=== PATIENT | female | born 2000 | race Caucasian/White ===

== ENCOUNTER 2020-06-23 14:50 | Inpatient (IN) ==
[2020-06-23 15:31] LABS: Bacteria,Urine Few per hpf (None-Few); Bilirubin,Urine Negative (Negative); Blood,Urine Negative (Negative); Calcium Oxalate Crystals,Urine Present; Clarity,Urine Turbid (Clear); Color,Urine Yellow (Yellow); Glucose,Urine (UA) Normal (Normal); Ketones,Urine Negative (Negative); Leukocyte Esterase,Urine Negative (Negative); Mucus,Urine Moderate per lpf (None-Few); Nitrite,Urine Negative (Negative); Protein,Urine 30 mg/dL (Neg-Trace); RBC,Urine 0-3 per hpf (0-3); Specific Gravity,Urine 1.029 (1.010-1.025); Squamous Epithelial Cell,Urine Few per hpf (None-Few); Urobilinogen,Urine >=8.0 mg/dL (Normal); WBC,Urine 0-3 per hpf (0-3)
[2020-06-23 15:34] LABS: Basophils % 0.6 %; Eosinophils # 0.1 K/mcL (0.0-0.6); Eosinophils % 1.9 %; Hematocrit 39.5 % (35.3-44.9); Hemoglobin 13.1 g/dL (11.5-15.4); Immature Granulocytes % 0.1 % (0-4); Lymphocytes # 2.6 K/mcL (0.6-4.6); Lymphocytes % 39.3 %; Mean Corpuscular HGB Conc 33.2 g/dL (31.6-35.5); Mean Corpuscular Hemoglobin 30.5 pg (28.0-33.3); Mean Corpuscular Volume 91.9 fL (83.0-100.0); Mean Platelet Volume 9.4 fL (9.4-12.4); Monocytes # 0.6 K/mcL (0.0-1.3); Monocytes % 8.8 %; Neutrophils # 3.3 K/mcL (1.6-8.9); Platelet Count 240 K/mcL (140-400); Red Cell Distribution Width 13.3 % (11.5-14.5); Segmented Neutrophils % 49.3 %; White Blood Count 6.7 K/mcL (4.3-11.1)
[2020-06-23 16:14] LABS: Acetaminophen < 10 mcg/mL (10-20); Blood Urea Nitrogen 7 mg/dL (6-20); Calcium 9.5 mg/dL (8.6-10.3); Carbon Dioxide 23 mEq/L (23-29); Chloride 109 mEq/L (98-107); Ethanol < 10 mg/dL (Less than 10); Glucose 91 mg/dL (70-105); Osmolality,Calculated 292 (280-300); Potassium 3.7 mEq/L (3.5-5.1); Salicylate < 2.5 mg/dL (15.0-30.0); Sodium 142 mEq/L (136-145)
[2020-06-23 16:18] LABS: Amphetamine Screen,Urine Positive ng/mL (Cutoff=1000); Barbiturate Screen,Urine Negative ng/mL (Cutoff=200); Benzodiazepines Screen,Urine Negative ng/mL (Cutoff=200); Cannabinoid Screen,Urine Negative ng/mL (Cutoff = 50); Cocaine Screen,Urine Negative ng/mL (Cutoff= 300); Opiate Screen,Urine Negative ng/mL (Cutoff=300); Phencyclidine Screen,Urine Negative ng/mL (Cutoff=25)
[2020-06-23 16:39] LABS: BUN/Creatinine Ratio 10 (6-26); eGFR For African Americans > 60 (> 60); eGFR For Non-African Americans > 60 (> 60)
[2020-06-23] MEDS ORDERED: *HR* LORazepam 1 MG TABLET PO PRN (18:47)
[2020-06-23] MEDS ORDERED: MOM Conc 10 ML UD.LIQ PO PRN (18:47)
[2020-06-23] MEDS ORDERED: haloperidoL 5 MG TABLET PO PRN (18:47)
[2020-06-23] MEDS ORDERED: *HR* LORazepam 2 MG/ML VIAL IM PRN (18:47)
[2020-06-23] MEDS ORDERED: traZODone 50 MG TABLET PO PRN (18:47)
[2020-06-23] MEDS ORDERED: Mag Hydrox/Al Hydrox/Simeth 30 ML UDC PO PRN (18:47)
[2020-06-23] MEDS ORDERED: Haloperidol Lactate 5 MG/ML VIAL IM PRN (18:47)
[2020-06-23] MEDS ORDERED: cloNIDine HCL 0.1 MG TABLET PO PRN (18:49)
[2020-06-23] MEDS: Ibuprofen 400 MG TABLET PO PRN (20:43)
[2020-06-23] MEDS: hydrOXYzine pamoate 25 MG CAPSULE PO PRN (20:43)
[2020-06-23] MEDS: Nicotine 14 MG PATCH.TD24 TD SCH (21:46)
[2020-06-24] MEDS: Ibuprofen 400 MG TABLET PO PRN (19:00)
[2020-06-24] MEDS: Nicotine 14 MG PATCH.TD24 TD SCH (19:05)
[2020-06-24] MEDS: QUEtiapine Fumarate 25 MG TABLET PO SCH (20:42)
[2020-06-24] MEDS: hydrOXYzine pamoate 25 MG CAPSULE PO PRN (20:42)
[2020-06-25] MEDS: Nicotine 21 MG PATCH.TD24 TD SCH (09:24)
[2020-06-25] MEDS: hydrOXYzine pamoate 25 MG CAPSULE PO PRN (20:18)
[2020-06-25] MEDS: QUEtiapine Fumarate 25 MG TABLET PO SCH (20:18)
[2020-06-26] MEDS: Nicotine 21 MG PATCH.TD24 TD SCH (09:10)
[2020-06-26 10:17] VITALS: BP 116/80
== END 2020-06-26 16:10 | disposition home or self-care (01) | DRG 751 ==
LOC: EMEROOARM 14:50 → 1ANU 18:46
PROVIDERS: ADMIT Psychiatry & Neurology Psychiatry; ATTEND Psychiatry & Neurology Psychiatry

== ENCOUNTER 2021-09-02 22:30 | Inpatient (IN) ==
[2021-09-02] MEDS ORDERED: Naloxone 0.4 MG/ML INJ ONE (22:39)
[2021-09-02] MEDS ORDERED: Naloxone 0.4 MG/ML INJ IVP ONE (22:43)
[2021-09-02] MEDS ORDERED: 0.9 % Sodium Chloride 1,000 ML IVC ONE (22:43)
[2021-09-02 23:07] LABS: ABG Base Excess -5 mEq/L (-2 to 3); ABG HCO3 21 mEq/L (21-27); ABG Oxygen Saturation 93 % (95-98); ABG PCO2 40 mmHg (35-45); ABG PH 7.32 pH Units (7.32-7.45); ABG PO2 71 mmHg (85-104); ABG TCO2 22 mEq/L (20-26); Blood Gas Modality CPAP/PS
[2021-09-02 23:15] LABS: Basophils % 0.3 %; Lymphocytes % 6.2 %; Mean Platelet Volume 9.8 fL (9.4-12.4); Monocytes % 1.5 %
[2021-09-02 23:16] LABS: Basophils # 0.1 K/mcL (0.0-0.2); Eosinophils % 0.1 %; Hematocrit 39.4 % (35.3-44.9); Hemoglobin 13.3 g/dL (11.5-15.4); Immature Granulocytes % 1.9 % (0-4); Lymphocytes # 2.2 K/mcL (0.6-4.6); Mean Corpuscular HGB Conc 33.8 g/dL (31.6-35.5); Mean Corpuscular Hemoglobin 32.6 pg (28.0-33.3); Mean Corpuscular Volume 96.6 fL (83.0-100.0); Monocytes # 0.5 K/mcL (0.0-1.3); Platelet Count 292 K/mcL (140-400); Red Blood Count 4.08 M/mcL (3.82-4.97); Red Cell Distribution Width 12.4 % (11.5-14.5)
[2021-09-02 23:19] LABS: Neutrophils # 31.8 K/mcL (1.6-8.9); White Blood Count 35.3 K/mcL (4.3-11.1)
[2021-09-02 23:35] LABS: Acetaminophen < 10 mcg/mL (10-20); Alanine Aminotransferase 82 Units/L (7-52); Albumin/Globulin Ratio 1.3 (1.1-2.2); Alkaline Phosphatase 63 Units/L (34-104); Aspartate Amino Transferase 47 Units/L (13-39); BUN/Creatinine Ratio 8 (6-26); Bilirubin,Indirect 0.2 mg/dL (0.0-1.0); Bilirubin,Total 0.2 mg/dL (0.3-1.0); Blood Urea Nitrogen 10 mg/dL (6-20); Calcium 8.7 mg/dL (8.6-10.3); Carbon Dioxide 21 mEq/L (23-29); Chloride 103 mEq/L (98-107); Ethanol < 10 mg/dL (Less than 10); Globulin 3.2 g/dL (2.4-3.5); Glucose 258 mg/dL (70-105); Osmolality,Calculated 290 (280-300); Potassium 4.3 mEq/L (3.5-5.1); Salicylate < 2.5 mg/dL (15.0-30.0); Sodium 136 mEq/L (136-145); Total Protein 7.2 g/dL (6.4-8.9); eGFR For African Americans > 60 (> 60); eGFR For Non-African Americans 55 (> 60)
[2021-09-03] MEDS ORDERED: Azithromycin 500 MG in 0.9 % Sodium Chloride 250 ML IVPB ONE
[2021-09-03] MEDS ORDERED: cefTRIAXone 1,000 MG in Water for inj. (sterile) 10 ML IVP ONE
[2021-09-03] MEDS ORDERED: 0.9 % Sodium Chloride 1,000 ML IVC ONE (00:25)
[2021-09-03 00:31] LABS: Bacteria,Urine Few per hpf (None-Few); Bilirubin,Urine Negative (Negative); Blood,Urine Negative (Negative); Clarity,Urine Turbid (Clear); Color,Urine Light-Yellow (Yellow); Glucose,Urine (UA) 500 mg/dL (Normal); Hyaline Casts,Urine Few per lpf (None Seen); Ketones,Urine Negative (Negative); Leukocyte Esterase,Urine Negative (Negative); Mucus,Urine Few per lpf (None-Few); Nitrite,Urine Negative (Negative); Protein,Urine 50 mg/dL (Neg-Trace); RBC,Urine 0-3 per hpf (0-3); Specific Gravity,Urine 1.011 (1.010-1.025); Urobilinogen,Urine Normal (Normal)
[2021-09-03 00:35] LABS: Amphetamine Screen,Urine Negative ng/mL (Cutoff=1000); Barbiturate Screen,Urine Negative ng/mL (Cutoff=200); Benzodiazepines Screen,Urine Negative ng/mL (Cutoff=200); Cannabinoid Screen,Urine Negative ng/mL (Cutoff = 50); Cocaine Screen,Urine Negative ng/mL (Cutoff= 300); Opiate Screen,Urine Negative ng/mL (Cutoff=300); Phencyclidine Screen,Urine Negative ng/mL (Cutoff=25)
[2021-09-03] MEDS ORDERED: Melatonin 3 MG TABLET PO PRN (01:03)
[2021-09-03] MEDS ORDERED: Naloxone 0.4 MG/ML INJ IVP PRN (01:03)
[2021-09-03 01:04] LABS: Influenza A PCR Negative (Negative); Influenza B PCR Negative (Negative); Resp. Syncytial Virus PCR Negative (Negative); SARS-CoV-2 by PCR (In House) Negative (Negative)
[2021-09-03] MEDS ORDERED: Isovue-370 500 ML BOTTLE IVP ONE ×2 (01:09→13:25)
[2021-09-03] MEDS: Ondansetron ODT 4 MG TAB.RAPDIS SL PRN ×2 (01:51→23:22)
[2021-09-03 02:46] LABS: Magnesium 1.9 mg/dL (1.6-2.6)
[2021-09-03 02:54] LABS: Troponin I 0.28 ng/mL (< 0.04)
[2021-09-03] MEDS ORDERED: Nitroglycerin 0.4 MG TAB.SUBL SL PRN (03:47)
[2021-09-03] MEDS ORDERED: Perflutren Lipid Microsphere 1.3 ML in 0.9 % Sodium Chloride 8.7 ML IVP PRN (03:53)
[2021-09-03] MEDS ORDERED: *HR* Heparin 5,000 UNIT/ML VIAL IVP ONE (03:57)
[2021-09-03] MEDS ORDERED: *HR* Heparin 5,000 UNIT/ML VIAL IVP PRN ×2 (03:57)
[2021-09-03 04:42] LABS: Basophils % 0.1 %; Hematocrit 32.8 % (35.3-44.9); Immature Granulocytes % 0.6 % (0-4); Lymphocytes # 0.8 K/mcL (0.6-4.6); Lymphocytes % 4.1 %; Mean Corpuscular HGB Conc 35.1 g/dL (31.6-35.5); Mean Corpuscular Hemoglobin 33.4 pg (28.0-33.3); Mean Corpuscular Volume 95.3 fL (83.0-100.0); Mean Platelet Volume 9.8 fL (9.4-12.4); Monocytes # 0.9 K/mcL (0.0-1.3); Monocytes % 4.7 %; Neutrophils # 17.4 K/mcL (1.6-8.9); Platelet Count 226 K/mcL (140-400); Red Blood Count 3.44 M/mcL (3.82-4.97); Red Cell Distribution Width 12.5 % (11.5-14.5); Segmented Neutrophils % 90.5 %; White Blood Count 19.2 K/mcL (4.3-11.1)
[2021-09-03 04:59] LABS: BUN/Creatinine Ratio 13 (6-26); Blood Urea Nitrogen 10 mg/dL (6-20); Calcium 7.7 mg/dL (8.6-10.3); Carbon Dioxide 25 mEq/L (23-29); Chloride 107 mEq/L (98-107); Glucose 97 mg/dL (70-105); Osmolality,Calculated 285 (280-300); Potassium 4.2 mEq/L (3.5-5.1); Sodium 138 mEq/L (136-145); eGFR For African Americans > 60 (> 60); eGFR For Non-African Americans > 60 (> 60)
[2021-09-03 05:00] LABS: Albumin 3.4 g/dL (3.5-5.7); Albumin/Globulin Ratio 1.4 (1.1-2.2); Bilirubin,Direct 0.1 mg/dL (0.0-0.2); Bilirubin,Indirect 0.2 mg/dL (0.0-1.0); Bilirubin,Total 0.3 mg/dL (0.3-1.0); Globulin 2.5 g/dL (2.4-3.5); Total Protein 5.9 g/dL (6.4-8.9)
[2021-09-03] MEDS ORDERED: Vancomycin 1,500 MG/265 ML IV.SOLN IVPB ONE (05:00)
[2021-09-03 05:11] LABS: Hemoglobin 11.5 g/dL (11.5-15.4)
[2021-09-03] MEDS: MethylPREDNISolone 40 MG/ML VIAL IVP SCH ×3 (05:16→22:34)
[2021-09-03] MEDS: Heparin 25,000UNIT/250ML 1/2NS 25,000 UNIT/250 ML IV.SOLN IVC SCH (05:21)
[2021-09-03] MEDS: Piperacillin/Tazobactam 3.375 GM in 0.9 % Sodium Chloride Mini Bag 100 ML IVPB SCH ×2 (08:13→16:43)
[2021-09-03] MEDS ORDERED: *HR* Metoprolol 5 MG/5 ML VIAL IVP PRN (13:25)
[2021-09-03] MEDS ORDERED: Ringers Solution, Lactated 1,000 ML IVC ONE (13:40)
[2021-09-03] MEDS ORDERED: Vancomycin 1,250 MG/262.5 ML IV.SOLN IVPB SCH (17:00)
[2021-09-03] MEDS: Vancomycin 1,250 MG/262.5 ML IV.SOLN IVPB SCH (18:34)
[2021-09-04] MEDS: Piperacillin/Tazobactam 3.375 GM in 0.9 % Sodium Chloride Mini Bag 100 ML IVPB SCH ×3 (00:35→16:07)
[2021-09-04 01:56] LABS: Hematocrit 32.8 % (35.3-44.9); Hemoglobin 11.3 g/dL (11.5-15.4); Mean Corpuscular HGB Conc 34.5 g/dL (31.6-35.5); Mean Corpuscular Hemoglobin 32.4 pg (28.0-33.3); Mean Platelet Volume 9.9 fL (9.4-12.4); Platelet Count 243 K/mcL (140-400); Red Blood Count 3.49 M/mcL (3.82-4.97); Red Cell Distribution Width 12.3 % (11.5-14.5); White Blood Count 19.2 K/mcL (4.3-11.1)
[2021-09-04 02:07] LABS: INR 1.2; Prothrombin Time 13.2 Seconds (9.4-12.1)
[2021-09-04 02:12] LABS: Chol/HDL Ratio 2.3 (0-4.9)
[2021-09-04 02:32] LABS: BUN/Creatinine Ratio 20 (6-26); Blood Urea Nitrogen 13 mg/dL (6-20); Calcium 8.7 mg/dL (8.6-10.3); Carbon Dioxide 24 mEq/L (23-29); Chloride 108 mEq/L (98-107); Glucose 150 mg/dL (70-105); Osmolality,Calculated 289 (280-300); Phosphorous < 1.0 mg/dL (2.7-4.5); Potassium 4.4 mEq/L (3.5-5.1); Sodium 138 mEq/L (136-145); eGFR For African Americans > 60 (> 60); eGFR For Non-African Americans > 60 (> 60)
[2021-09-04 02:34] LABS: Hepatitis B Surface Antigen Nonreactive (Nonreactive)
[2021-09-04 03:02] LABS: Hepatitis B Core IgM Nonreactive (Nonreactive)
[2021-09-04 03:04] LABS: Hepatitis A Antibody IgM Nonreactive (Nonreactive)
[2021-09-04 03:16] LABS: Estimated Average Glucose 103 mg/dl; Hemoglobin A1C 5.2 %
[2021-09-04] MEDS: MethylPREDNISolone 40 MG/ML VIAL IVP SCH ×3 (04:28→20:36)
[2021-09-04] MEDS: Vancomycin 1,250 MG/262.5 ML IV.SOLN IVPB SCH ×2 (04:33→20:50)
[2021-09-04 05:59] LABS: Hepatitis C Virus Antibody Reactive (Nonreactive)
[2021-09-04] MEDS: Morphine Sulfate 2 MG/ML SYRINGE IVP PRN ×2 (08:04→20:48)
[2021-09-04] MEDS: Heparin 25,000UNIT/250ML 1/2NS 25,000 UNIT/250 ML IV.SOLN IVC SCH (08:08)
[2021-09-04] MEDS ORDERED: *HR* Rocuronium Bromide 50 MG/5 ML VIAL ONE (09:03)
[2021-09-04] MEDS ORDERED: Lidocaine -MPF 4% 5 ML AMPUL ONE (09:03)
[2021-09-04] MEDS ORDERED: *HR* Succinylcholine 200 MG/10 ML VIAL IVP ONE (09:03)
[2021-09-04] MEDS ORDERED: *HR* Propofol 200 MG/20 ML VIAL IVP ONE (09:03)
[2021-09-04] MEDS ORDERED: Lidocaine -MPF 2% 2 ML VIAL ONE ×2 (09:03→09:05)
[2021-09-04] MEDS ORDERED: *HR* FentaNYL (PF) 100 MCG/2 ML VIAL ONE (09:03)
[2021-09-04] MEDS ORDERED: *HR* OxyCODONE Immed Rel 5 MG TABLET PO PRN (09:39)
[2021-09-04 13:03] LABS: Appearance of Body Fluid Clear (Clear); Volume of Body Fluid 18 mL
[2021-09-04 13:09] LABS: Appearance of Body Fluid Clear (Clear); Volume of Body Fluid 22 mL
[2021-09-05 00:33] LABS: Hematocrit 32.8 % (35.3-44.9); Hemoglobin 11.3 g/dL (11.5-15.4); Mean Corpuscular HGB Conc 34.5 g/dL (31.6-35.5); Mean Corpuscular Hemoglobin 32.9 pg (28.0-33.3); Mean Corpuscular Volume 95.6 fL (83.0-100.0); Mean Platelet Volume 10.9 fL (9.4-12.4); Platelet Count 125 K/mcL (140-400); Red Blood Count 3.43 M/mcL (3.82-4.97); Red Cell Distribution Width 12.3 % (11.5-14.5); White Blood Count 23.1 K/mcL (4.3-11.1)
[2021-09-05 00:47] LABS: BUN/Creatinine Ratio 23 (6-26); Blood Urea Nitrogen 12 mg/dL (6-20); Calcium 7.6 mg/dL (8.6-10.3); Carbon Dioxide 23 mEq/L (23-29); Chloride 113 mEq/L (98-107); Glucose 172 mg/dL (70-105); Osmolality,Calculated 296 (280-300); Potassium 3.9 mEq/L (3.5-5.1); Sodium 141 mEq/L (136-145); eGFR For African Americans > 60 (> 60); eGFR For Non-African Americans > 60 (> 60)
[2021-09-05] MEDS: MethylPREDNISolone 40 MG/ML VIAL IVP SCH (03:09)
[2021-09-05] MEDS: Morphine Sulfate 2 MG/ML SYRINGE IVP PRN ×2 (03:11→09:04)
[2021-09-05 04:39] VITALS: O2SAT 95
[2021-09-05] MEDS: Vancomycin 1,250 MG/262.5 ML IV.SOLN IVPB SCH (07:18)
[2021-09-05 08:12] VITALS: BP 116/46; PULSE 49; TEMP 98.7
[2021-09-05] MEDS: Heparin 25,000UNIT/250ML 1/2NS 25,000 UNIT/250 ML IV.SOLN IVC SCH (08:40)
[2021-09-05] MEDS: Piperacillin/Tazobactam 3.375 GM in 0.9 % Sodium Chloride Mini Bag 100 ML IVPB SCH ×2 (09:00)
== END 2021-09-05 11:31 | disposition home or self-care (01) | DRG 720 ==
LOC: EMEROOARM 22:30 → 2NENU 22:30 → SUATTDRO 09-03 03:58
PROVIDERS: ADMIT Student in an Organized Health Care Education/Training Program; ATTEND Family Medicine
PROC: ENDOBRF (2021-09-04 10:00)